=== PATIENT | male | born 1950 | race Caucasian/White ===

== ENCOUNTER 2020-04-24 19:55 | Emergency (ER) | payer MEDICARE ==
[2020-04-24 20:06] VITALS: BP 153/63; PULSE 88; RESP 16; TEMP 97.6
--- NOTE | 2020-04-24 21:41 | ED ---
ENT HPI - General Source: patient Mode of arrival: ambulatory Limitations: no limitations <Emile Smith - Last Filed: 04/25/20 14:17> <Nicole Sheets - Last Filed: 05/02/20 01:25> - General Chief complaint: ENT Stated complaint: Nose Bleed Time Seen by Provider: 04/24/20 20:09 - History of Present Illness Initial comments: Patient is a 69-year-old male presenting to emergency Department with chief complaint of epistaxis. Patient transferred from [facility]. Transfer information was discussed between the emergency room physician at that [facility] and Dr. Sheets. Patient reports today when the car he developed epistaxis from the left nostril. The emergency room physician at the [facility] was able to place a Rhino Rocket in the left nostril and patient was transferred here. Patient states on the ride to this hospital, the epistaxis has resolved. He states he is not swallowing any blood nor is there any more bleeding. Patient denies any lightheadedness or dizziness at this time. Patient states he is on aspirin and berlinta (Emile Smith) - Related Data Previous Rx's Medication Instructions Recorded Amoxicillin/Potassium Clav 1 tab PO Q12HR #20 tab 04/24/20 [Augmentin 875-125 Tablet] Allergies Allergy/AdvReac Type Severity Reaction Status Date / Time No Known Allergies Allergy Verified 04/24/20 20:06 Review of Systems ROS Other: All systems not noted in ROS Statement are negative. <Emile Smith - Last Filed: 04/25/20 14:17> ROS Other: All systems not noted in ROS Statement are negative. <Nicole Sheets - Last Filed: 05/02/20 01:25> ROS Statement: Those systems with pertinent positive or pertinent negative responses have been documented in the HPI. 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 History of Any Multi-Drug Resistant Organisms: None Reported Past Surgical History: Heart Catheterization With Stent Past Psychological History: No Psychological Hx Reported Smoking Status: Current every day smoker Past Alcohol Use History: None Reported Past Drug Use History: Marijuana <Emile Smith - Last Filed: 04/25/20 14:17> General Exam Limitations: no limitations General appearance: alert, in no apparent distress Head exam: Present: atraumatic, normocephalic, normal inspection Eye exam: Present: normal appearance, PERRL, EOMI Pupils: Present: normal accommodation ENT exam: Present: normal exam, mucous membranes moist, TM's normal bilaterally, normal external ear exam. Absent: normal oropharynx (Rhino Rocket left nostril. No epistaxis noted on the right nostril. Some residual blood in the posterior pharynx. No active bleeding noted.) Neck exam: Present: normal inspection, full ROM Respiratory exam: Present: normal lung sounds bilaterally. Absent: respiratory distress, wheezes Cardiovascular Exam: Present: regular rate, normal rhythm, normal heart sounds Extremities exam: Present: normal inspection, full ROM. Absent: tenderness Back exam: Present: normal inspection, full ROM Neurological exam: Present: alert, oriented X3 Psychiatric exam: Present: normal affect, normal mood Skin exam: Present: warm, dry, intact, normal color <Emile Smith - Last Filed: 04/25/20 14:17> Course Vital Signs 04/24/20 20:01 Temperature 97.6 F Pulse Rate 88 Respiratory 16 Rate Blood Pressure 153/63 O2 Sat by Pulse 99 Oximetry Medical Decision Making <Emile Smith - Last Filed: 04/25/20 14:17> <Nicole Sheets - Last Filed: 05/02/20 01:25> - Medical Decision Making Patient is 69-year-old male presenting to emergency Department with a chief complaint of epistaxis. Patient has a Rhino Rocket in the left nostril. Right nostril appears unremarkable. Some residual blood noted in the posterior pharynx. Patient was able to cough up a blood clot but states he is not swallowing any more blood. States history of feels better now. Patient will be started on Augmentin in the ED. Will be discharged with Augmentin. He is to see an ENT specialist near his city. Vitals are stable. No lightheadedness or dizziness. Patient did report using a wooden stove to heat the house and he sleeps very close to it. I suspect the dry air could be the cause of his epistaxis. Patient advised to apply Vaseline to the nostrils in the morning and night or nasal spray. Strict return parameters were thoroughly discussed with the patient was understanding and agreeable. Case discussed with physician. (Emile Smith) I was available for consultation in the emergency department. The history and physical exam were done by the midlevel provider. I was consulted for this patients care. I reviewed the case with the midlevel provider and based on their presentation of the patient, I agree with the assessment, medical decision making and plan of care as documented. I evaluated the patient myself after accepting transfer from [facility]. Large blood clot posterior pharynx. Patient is given water and is able to cough up the clot. No residual blood in posterior pharynx and no notable bleeding anteriorly. Patient feels comfortable to be discharged home and follow up with ENT in 24-48 hours for nasal packing removal. Return to the ED for any new or worsening symptoms. Chart was dictated using [employer] dictation software. Attempts were made to correct any dictation errors however some typographical errors may persist. Patient was seen during a national state of emergency due to the Covid-19 pandemic. (Nicole Sheets) Disposition Is patient prescribed a controlled substance at d/c from ED?: No Time of Disposition: 21:41 <Emile Smith - Last Filed: 04/25/20 14:17> <Nicole Sheets - Last Filed: 05/02/20 01:25> Clinical Impression: Left-sided epistaxis Disposition: HOME SELF-CARE Condition: Good Instructions (If sedation given, give patient instructions): Nosebleed (ED) Additional Instructions: Follow-up with an ENT specialist. Use saline nasal spray. Return to emergency department if symptoms worsen. Prescriptions: Amoxicillin/Potassium Clav [Augmentin 875-125 Tablet] 1 tab PO Q12HR #20 tab Referrals: Megan Milton FNPBC [REFERRING] - 1-2 days Orion Roman DO [Doctor of Osteopathic Medicine] - 1-2 days
== END 2020-04-24 21:52 | disposition home or self-care (01) ==
LOC: EC 19:55
DX: R04.0 Epistaxis (principal); F17.200 Nicotine dependence, unspecified, uncomplicated; Z85.818 Personal history of malignant neoplasm of other sites of lip, oral cavity, and pharynx; Z95.5 Presence of coronary angioplasty implant and graft
CPT/HCPCS: 99283